=== PATIENT | female | born 1985 | race Two or more races ===

== ENCOUNTER 2018-11-11 17:09 | Emergency (ER) | payer BC, OTHER ==
[~2018-11-11] VITALS: Ht 172.7 cm; Wt 86.2 kg
[2018-11-11 18:00] VITALS: BP 136/83
[2018-11-11] MEDS ORDERED: IBUP-1007 PO (18:42)
[2018-11-11] MEDS ORDERED: CYCL10TA2 PO (18:42)
--- NOTE | 2018-11-11 18:42 | PHYS DOC ---
Past Medical History Past Medical History: No Pertinent History Past Surgical History: Other Additional Past Surgical Histo: PTERYGIUM Alcohol Use: Occasionally Drug Use: None Adult General Chief Complaint Chief Complaint: BACK PAIN OR INJURY HPI HPI Patient is a 33 year old male who presents with back pain has been ongoing for a couple days. The patient states he picked up an air compressor and his back started hurting. States this is been happening frequently. Not tried any interventions prior to arrival. Has a pain level that he states is 7 out of 10 in severity. Denies any other symptoms. Review of Systems Review of Systems Constitutional: Denies fever or chills [] Eyes: Denies change in visual acuity, redness, or eye pain [] HENT: Denies nasal congestion or sore throat [] Respiratory: Denies cough or shortness of breath [] Cardiovascular: No additional information not addressed in HPI [] GI: Denies abdominal pain, nausea, vomiting, bloody stools or diarrhea [] : Denies dysuria or hematuria [] Musculoskeletal: Reports back pain denies joint pain [] Integument: Denies rash or skin lesions [] Neurologic: Denies headache, focal weakness or sensory changes [] Endocrine: Denies polyuria or polydipsia [] Complete systems were reviewed and found to be within normal limits, except as documented in this note. Current Medications Current Medications Current Medications Medications (Trade) Dose Ordered Sig/Maximo Start Time Stop Time Status Last Admin Dose Admin Cyclobenzaprine HCl (Flexeril) 10 mg 1X ONCE 11/11/18 19:00 11/11/18 19:01 Ketorolac Tromethamine (Toradol 30mg Vial) 30 mg 1X ONCE 11/11/18 19:00 11/11/18 19:01 Allergies Allergies Allergies Coded Allergies Type Severity Reaction Last Updated Verified No Known Drug Allergies 11/11/18 No Physical Exam Physical Exam Constitutional: Well developed, well nourished, no acute distress, non-toxic appearance. [] HENT: Normocephalic, atraumatic, bilateral external ears normal, oropharynx moist, no oral exudates, nose normal. [] Eyes: PERRLA, EOMI, conjunctiva normal, no discharge. [] Neck: Normal range of motion, no tenderness, supple, no stridor. [] Cardiovascular:Heart rate regular rhythm, no murmur [] Lungs & Thorax: Bilateral breath sounds clear to auscultation [] Abdomen: Bowel sounds normal, soft, no tenderness, no masses, no pulsatile masses. [] Skin: Warm, dry, no erythema, no rash. [] Back: Tenderness bilaterally to the left lower back and right lower back, no CVA tenderness. [] Extremities: No tenderness, no cyanosis, no clubbing, ROM intact, no edema. [] Neurologic: Alert and oriented X 3, normal motor function, normal sensory function, no focal deficits noted. [] Psychologic: Affect normal, judgement normal, mood normal. [] Current Patient Data Vital Signs Vital Signs Date Time Temp Pulse Resp B/P (MAP) Pulse Ox O2 Delivery O2 Flow Rate FiO2 11/11/18 18:00 98.3 57 18 136/83 (100) 99 Room Air 98.3 EKG EKG [] Radiology/Procedures Radiology/Procedures [] Course & Med Decision Making Course & Med Decision Making Pertinent Labs and Imaging studies reviewed. (See chart for details) Discussed with patient that this is likely musculoskeletal in nature. Will order Flexeril and Toradol in ER and send home with script for Ibuprofen and Flexeril. Also discussed exercises that he can do for back and the proper mechanics of lifting. Discussed with patient that if this does not improve with musculoskeletal treatment can follow up for additional workup. The patient denies urinary or incontinence issues. Dragon Disclaimer Dragon Disclaimer This electronic medical record was generated, in whole or in part, using a voice recognition dictation system. Departure Departure Impression: Primary Impression: Back pain Disposition: HOME, SELF-CARE Condition: STABLE Referrals: UNKNOWN PCP NAME (PCP) Patient Instructions: Back Exercises, Back Injury Prevention Additional Instructions: Thank you for visiting [facility]. We appreciate you trusting us with your care. If any additional problems come up don't hesitate to return to visit us. Please follow up with your primary care provider so they can plan additional care if needed and know about the problem that you had. If symptoms worsen come back to the Emergency Department. Any concerning symptoms that start such as chest pain, shortness of Air, weakness or numbness on one side of the body, running high fevers or any other concerning symptoms return to the ER. Please fill your medications at any pharmacy and follow the prescription instructions. Scripts Ibuprofen (IBUPROFEN) 600 Mg Tablet 600 MG PO PRN Q6HRS PRN for INFLAMMATION for 10 Days, #20 TAB Prov: CONCHA HILL APRN 11/11/18 Cyclobenzaprine Hcl (CYCLOBENZAPRINE HCL) 10 Mg Tablet 1 TAB PO TID PRN for MUSCLE SPASMS, #30 TAB Prov: CONCHA HILL APRN 11/11/18 Problem Qualifiers Primary Impression: Back pain Back pain location: low back pain Chronicity: acute Back pain laterality: bilateral Sciatica presence: without sciatica Qualified Codes: M54.5 - Low back pain OCNCHA HILL APRN Nov 11, 2018 18:42
[2018-11-11] MEDS ORDERED: CYCLOBENZAPRINE 10 MG TABLET. PO ONE (19:00)
[2018-11-11] MEDS ORDERED: KETOROLAC 30 MG/ML VIAL. IM ONE (19:00)
== END 2018-11-11 18:58 | disposition home or self-care (01) ==
LOC: ER 17:09
DX: M54.5 Low back pain (principal)
CPT/HCPCS: 96372; 99283; J1885

== ENCOUNTER 2021-03-16 19:59 | Emergency (ER) | payer BC ==
[~2021-03-16] VITALS: Ht 177.8 cm; Wt 91.8 kg
[~2021-03-16 19:59] MED LIST: CYCL10TA19 PO; IBUP-1007 PO
--- NOTE | 2021-03-16 22:32 | RAD ---
Exam: Right shoulder 3 views INDICATION: Pain status post fall TECHNIQUE: Frontal view of the right shoulder with internal and external rotation and transscapular Y views Comparisons: None FINDINGS: There is a large exostosis appears chronically fractured arising off the medial aspect of the right h umeral metaphysis. No acute fractures identified. Bone mineralization is normal. Joint spaces are wel l-maintained. IMPRESSION: No acute osseous abnormality. Electronically signed by: Lenore Acevedo MD (03/16/2021 10:29 PM) JULIA
[2021-03-16 22:51] VITALS: BP 139/91
--- NOTE | 2021-03-16 23:02 | PHYS DOC ---
Past Medical History Past Medical History: Asthma Additional Past Medical Histor: Right upper arm injury when patient was 9-10 y/o Past Surgical History: Other Additional Past Surgical Histo: PTERYGIUM Smoking Status: Never Smoker Alcohol Use: Occasionally Drug Use: None General Adult EDM: Chief Complaint: MECHANICAL FALL HPI: HPI: Patient is a 35 year old male patient with past medical history of asthma who presents today with right shoulder pain after falling off his horse about 10 days ago. Patient does state that the pain is worse in 1 specific spot on the anterior aspect of his right shoulder. The pain is significantly worse when he flexes or abduction of his arm past 90 degrees. Patient does endorse limited range of motion patient says that after he fell off his horse he had some pain but then it went away. Then the pain returned on Friday. Patient does state that the pain comes and goes with the position that he keeps his arm in. The pain is 10 out of 10 when he has his arm in a position of discomfort. However, the patient states that his pain is about 3 out of 10 just at rest. Patient denies trying any pain medications to cope with the pain. Patient does remember injuring his right shoulder when he was a kid when he fell off a donkey at that time. Patient did not have an x-ray at that time and was not treated. Patient does recall now that he is not able to fully go through certain motions while weightlifting at the gym. Review of Systems: Review of Systems: Constitutional: Denies fever or chills Eyes: Denies redness or eye pain HENT: Denies nasal congestion or sore throat Respiratory: Denies cough or shortness of breath Cardiovascular: Denies chest pain or palpitations GI: Denies abdominal pain, nausea, or vomiting : Denies dysuria or hematuria Musculoskeletal: Denies back pain; endorses right shoulder pain Integument: Denies rash or skin lesions Neurologic: Denies headache, focal weakness or sensory changes Complete systems were reviewed and found to be within normal limits, except as documented in this note. Heart Score: C/O Chest Pain: N/A Allergies: Allergies: Allergies Coded Allergies Type Severity Reaction Last Updated Verified No Known Drug Allergies 03/16/21 No Physical Exam: PE: Constitutional: Well developed, well nourished, no acute distress, non-toxic appearance HENT: Normocephalic, atraumatic Eyes: PERRL, EOMI, conjunctiva normal, no discharge Neck: Normal range of motion, no midline tenderness, supple Lungs & Thorax: No respiratory distress, equal chest rise and fall Abdomen: Soft, no tenderness Skin: Warm, dry, no erythema, no rash Back: No tenderness, no CVA tenderness Extremities: Pinpoint tenderness around the bicipital groove of the right shoulder, limited range of motion, patient does not able to AB duct or flex his arm past 90 degrees, patient does have full strength and sensation, neurovascularly intact, the joint does not appear to be dislocated, empty can test negative Neurologic: Alert and oriented X 3, normal motor function, normal sensory function, no focal deficits noted Psychologic: Affect normal, judgment normal Current Patient Data: Vital Signs: Vital Signs Date Time Temp Pulse Resp B/P (MAP) Pulse Ox O2 Delivery O2 Flow Rate FiO2 03/16/21 22:16 98.2 57 14 139/91 (107) 97 Room Air 98.2 Radiology/Procedures: Radiology/Procedures: PROCEDURE: SHOULDER 2+V RIGHT Exam: Right shoulder 3 views INDICATION: Pain status post fall TECHNIQUE: Frontal view of the right shoulder with internal and external rotation and transscapular Y views Comparisons: None FINDINGS: There is a large exostosis appears chronically fractured arising off the medial aspect of the right humeral metaphysis. No acute fractures identified. Bone mineralization is normal. Joint spaces are well-maintained. IMPRESSION: No acute osseous abnormality. Electronically signed by: Lenore Carranza MD (03/16/2021 10:29 PM) [facility] DICTATED and SIGNED BY: LENORE CARRANZA MD Course & Med Decision Making: Course & Med Decision Making 35-year-old male patient with past medical history of asthma is presenting today with right shoulder pain after falling off his horse about 10 days ago. Patient does have limited range of motion with inability to flex or AB duct over 90 degrees he also does have some pinpoint tenderness in the right shoulder in the anterior aspect. There appears to be an old fracture in the right humerus and the patient recalls this must have of occurred when he was around 10 years old. There is no acute fracture dislocation on x-ray. There is a possibility of some sort of rotator cuff tear or tendinitis. It is recommended that the patient follows up with orthopedic surgery. Patient was placed in an immobilizer and instructed to do arm circles 10 times in a row in each direction at least 5 times a day to avoid frozen shoulder. Patient was also advised to treat the pain with ibuprofen at home. Patient was also prescribed muscle relaxers to help ease the pain until he meets with orthopedic surgery. Patient stable for discharge with outpatient follow-up with PCP/orthopedics. Orthopedic referral provided. Discussed findings and plan with patient, who acknowledges understanding and agreement. Hua Disclaimer: Hua Disclaimer: This electronic medical record was generated, in whole or in part, using a voice recognition dictation system. Splinting Splinting : Location: Right shoulder Pre-Made Type: Shoulder immobilizer Pre-Proc Neuro Vasc Exam: normal Post-Proc Neuro Vasc Exam: normal, unchanged from pre-exam Departure Departure Impression: Primary Impression: Right shoulder strain Qualified Codes: S46.911A - Strain of unspecified muscle, fascia and tendon at shoulder and upper arm level, right arm, initial encounter Disposition: HOME / SELF CARE / HOMELESS Condition: STABLE Referrals: UNKNOWN PCP NAME (PCP) ANTHONY TURNER DO Patient Instructions: Shoulder Immobilizer, Shoulder Pain, [id number] Additional Instructions: Ice area of discomfort 20 minutes on then leave off next 20 minutes. Repeat several times daily for the next 2 days. Take [id number] ibuprofen and or Tylenol for pain or discomfort. Maintain arm in a shoulder immobilizer however take arm out at least 5 times daily and perform shoulder circles 10 times in each direction to help prevent a frozen shoulder. Scripts Orphenadrine Citrate (ORPHENADRINE CITRATE) 100 Mg Tablet.er 100 MG PO BID PRN for MUSCLE PAIN, #14 TAB Prov: CONCHA RUFFIN DO 03/16/21 CONCHA RUFFIN DO Mar 16, 2021 23:02
[2021-03-16] MEDS ORDERED: ORPH100T PO (23:09)
== END 2021-03-16 23:26 | disposition home or self-care (01) ==
LOC: ER 19:59 → EDSEX 19:59 → ER 23:26
DX: S46.911A Strain of unspecified muscle, fascia and tendon at shoulder and upper arm level, right arm, initial encounter (principal); J45.909 Unspecified asthma, uncomplicated; V80.010A Animal-rider injured by fall from or being thrown from horse in noncollision accident, initial encounter; Y93.89 Activity, other specified; Y92.89 Other specified places as the place of occurrence of the external cause; Y99.8 Other external cause status
CPT/HCPCS: 29105; 73030; 99283

== ENCOUNTER 2021-06-05 12:27 | Emergency (ER) | payer BC, OTHER ==
[~2021-06-05] VITALS: Ht 172.7 cm; Wt 90.9 kg
[~2021-06-05 12:27] MED LIST changes: +ORPH100T PO
--- NOTE | 2021-06-05 14:10 | PHYS DOC ---
Past Medical History Past Medical History: Asthma Additional Past Medical Histor: Right upper arm injury when patient was 9-10 y/o Past Surgical History: Other Additional Past Surgical Histo: eye surg Smoking Status: Never Smoker Alcohol Use: Occasionally Drug Use: None General Adult EDM: Chief Complaint: COUGH HPI: HPI: Patient is a 35 year old male with history of asthma presenting today complaining of sore throat, cough, and slight shortness of breath, symptoms began 5 days ago. Patient denies any fever. He states he was vaccinated against COVID19, last dose of Roundrate vaccine was 6 months ago. Review of Systems: Review of Systems: Constitutional: Denies fever or chills. [] Eyes: Denies change in visual acuity. [] HENT: Reports sore throat. Denies nasal congestion Respiratory: Reports cough, slight shortness of breath Cardiovascular: Denies chest pain or edema. [] GI: Denies abdominal pain, nausea, vomiting, bloody stools or diarrhea. [] : Denies dysuria. [] Musculoskeletal: Denies back pain or joint pain. [] Integument: Denies rash. [] Neurologic: Denies headache, focal weakness or sensory changes. [] Psychiatric: Denies depression or anxiety. [] Heart Score: C/O Chest Pain: N/A Risk Factors: Risk Factors: DM, Current or recent (<one month) smoker, HTN, HLP, family history of CAD, obesity. Risk Scores: Score 0 - 3: 2.5% MACE over next 6 weeks - Discharge Home Score 4 - 6: 20.3% MACE over next 6 weeks - Admit for Clinical Observation Score 7 - 10: 72.7% MACE over next 6 weeks - Early Invasive Strategies Allergies: Allergies: Allergies Coded Allergies Type Severity Reaction Last Updated Verified No Known Drug Allergies 03/16/21 No Physical Exam: PE: Constitutional: Well developed, well nourished, no acute distress, non-toxic appearance. [] HENT: Normocephalic, atraumatic, bilateral external ears normal, oropharynx moist, no oral exudates, nose normal. [] Eyes: PERRLA, EOMI, conjunctiva normal, no discharge. [] Neck: Normal range of motion, no tenderness, supple, no stridor. [] Cardiovascular:Heart rate regular rhythm, no murmur [] Lungs & Thorax: Bilateral breath sounds clear to auscultation [] Abdomen: Bowel sounds normal, soft, no tenderness, no masses, no pulsatile masses. [] Skin: Warm, dry, no erythema, no rash. [] Back: No tenderness, no CVA tenderness. [] Extremities: No tenderness, no cyanosis, no clubbing, ROM intact, no edema. [] Neurologic: Alert and oriented X 3, normal motor function, normal sensory function, no focal deficits noted. [] Psychologic: Affect normal, judgement normal, mood normal. [] Current Patient Data: Vital Signs: Vital Signs Date Time Temp Pulse Resp B/P (MAP) Pulse Ox O2 Delivery O2 Flow Rate FiO2 06/05/21 13:33 99.0 95 18 131/70 (90) 98 Room Air 99.0 EKG: EKG: [] Radiology/Procedures: Radiology/Procedures: []PROCEDURE: CHEST AP ONLY EXAM: Chest, single view. HISTORY: Cough. COMPARISON: 03/16/2021. FINDINGS: A frontal view of the chest is obtained. There is no infiltrate, pleural effusion or pneumothorax. The heart is normal in size. There is a large osseous excrescence arising from the medial aspect of the proximal humeral metaphysis, better characterized on shoulder radiographs dated 03/16/2021. IMPRESSION: No acute pulmonary finding. Electronically signed by: Rahel Ken MD (06/05/2021 2:36 PM) [id number] DICTATED and SIGNED BY: RAHEL KEN MD DATE: 06/05/21 [id number] Course & Med Decision Making: Course & Med Decision Making Pertinent Labs and Imaging studies reviewed. (See chart for details) This is a 35-year-old male patient presented to the ED today complaining of sore throat, cough, and slight shortness of breath. Negative rapid covid and influenza tests. Pending PCR covid test. Negative chest xray. Supportive care measures recommended. F/u with PCP in 1-2 weeks Hua Disclaimer: Hua Disclaimer: This electronic medical record was generated, in whole or in part, using a voice recognition dictation system. Departure Departure Impression: Primary Impression: Person under investigation for COVID-19 Additional Impressions: Cough Sorethroat Disposition: HOME / SELF CARE / HOMELESS Condition: STABLE Referrals: GABRIEL SHAFFER PA-C (PCP) followup in the next 1 week Patient Instructions: Viral Infections, [id number] Additional Instructions: You were tested for Covid 19, your rapid covid test is negative. You have a pending covid PCR we will call with results. Quarantine until you hear from us. Your chest x-ray is negative for any acute findings. Please follow-up with your primary care doctor in 1 to 2 weeks DEMARCO HOOKS APRN Jun 05, 2021 14:10
--- NOTE | 2021-06-05 14:38 | RAD ---
EXAM: Chest, single view. HISTORY: Cough. COMPARISON: 03/16/2021. FINDINGS: A frontal view of the chest is obtained. There is no infiltrate, pleural effusion or pneumo thorax. The heart is normal in size. There is a large osseous excrescence arising from the medial asp ect of the proximal humeral metaphysis, better characterized on shoulder radiographs dated 03/16/2021. IMPRESSION: No acute pulmonary finding. Electronically signed by: Rahel Ken MD (06/05/2021 2:36 PM) [id number]
[2021-06-05 15:10] LABS: INFLUENZA A PATIENT NEGATIVE (NEGATIVE); INFLUENZA B PATIENT NEGATIVE (NEGATIVE)
[2021-06-05 15:50] VITALS: BP 136/81
--- NOTE | 2021-06-07 10:50 | NUR ---
IP: Attempted to contact pt concerning covid results. No answer, left a voicemail to return the call.
== END 2021-06-05 15:56 | disposition home or self-care (01) ==
LOC: ER 12:27
DX: U07.1 COVID-19 (principal); J45.909 Unspecified asthma, uncomplicated
CPT/HCPCS: 71045; 87428; 99284; U0003; U0005